=== PATIENT | female | born 1960 | race Hispanic/Latino ===

== ENCOUNTER 2016-11-27 16:22 | Emergency (ER) | payer BC ==
[2016-11-27] MEDS ORDERED: Acetaminophen 500 MG TAB ONE (17:08)
[2016-11-27] MEDS ORDERED: Lorazepam 1 MG TAB ONE (17:08)
[2016-11-27] MEDS ORDERED: cloNIDine HCl 0.1 MG TAB ONE (17:08)
== END 2016-11-27 18:56 | disposition home or self-care (01) ==
LOC: MADERS 16:22
DX: I10 Essential (primary) hypertension (principal); J20.9 Acute bronchitis, unspecified; E03.9 Hypothyroidism, unspecified
CPT/HCPCS: 87081; 87430; 99283